=== PATIENT | female | born 1930 | race Caucasian/White ===

== ENCOUNTER 2017-05-19 15:57 | Observation (INO) | payer BC ==
--- NOTE | 2017-05-19 16:20 | Emergency Department Record ---
History of Present Illness - General Chief Complaint: Numbness Stated Complaint: RT SIDE FACE AND RT HAND DIGITS NUMBNESS Time Seen by Provider: 05/19/17 16:07 Source: Patient Mode of Arrival: Ambulatory Limitations: No limitations - History of Present Illness Initial Comments: The patient was at home today and noticed around 1pm that the R lower area of her face and R hand were mildly numb. She also had mild R facial drooping and slightly slurred speech. The patient denied any weakness, PARDO, visual changes, or balance issues. The numbness then did slowly resolve and presently has completely resolved. She was able to walk into the ER normally for her with no ataxia. Additionally she denied any CP, SOB, or nausea. The patient denies any hx of any strokes or TIA's. Onset/Timin -: Hour(s) Location: Right arm, Right face History of same: No Place: Home Severity: Mild Quality: Numb Improves With: None Worsens With: None Associated Symptoms: Denies other symptoms Treatments Prior to Arrival: None - Marisol Coma Scale Eye Response: (4) Open spontaneously Motor Response: (6) Obeys commands Verbal Response: (5) Oriented [place] Total: 15 - Symptoms of Stroke Onset of Symptoms Date: 05/19/17 Onset of Symptoms Time: 13:00 Symptom Onset Unknown: No Symptoms of stroke: Slurred Speech Baseline State End Date: 05/19/17 Baseline State End Time: 16:10 - Related Data Allergies/Adverse Reactions: Allergies Allergy/AdvReac Type Severity Reaction Status Date / Time Aldosterone Antagonists Allergy Unknown PT UNSURE Verified 12/25/16 09:35 OF REACTION Carbonic Anhydrase Inhibitors Allergy Unknown PT UNSURE Verified 12/25/16 09:35 OF REACTION hydrochlorothiazide Allergy Unknown PT UNSURE Verified 12/25/16 09:35 OF REACTION Sulfa (Sulfonamide Allergy Unknown PT UNSURE Verified 12/25/16 09:35 Antibiotics) OF REACTION Sulfonylureas Allergy Unknown PT UNSURE Verified 12/25/16 09:35 OF REACTION Thiazides Allergy Unknown PT UNSURE Verified 12/25/16 09:35 OF REACTION triamterene Allergy Unknown PT UNSURE Verified 12/25/16 09:35 OF REACTION Allergies: Allergy Unknown PT UNSURE Uncoded 12/25/16 09:35 OF REACTION Latex Allergy: Allergy Unknown PT UNSURE Uncoded 12/25/16 09:35 OF REACTION Travel Screening - Travel/Exposure Within Last 30 Days Have you traveled within the last 30 days?: No Review of Systems Constitutional: Denies: Chills, Fever Eyes: Denies: Eye discharge ENT: Denies: Congestion Respiratory: Denies: Cough, Dyspnea Cardiovascular: Denies: Chest pain Endocrine: Denies: Fatigue Gastrointestinal: Denies: Abdominal pain Genitourinary: Denies: Dysuria Musculoskeletal: Denies: Back pain Past Medical History - SOCIAL HISTORY Smoking Status: Never smoker Drug Use: None - RESPIRATORY Hx Respiratory Disorders: No - CARDIOVASCULAR Hx Cardio Disorders: Yes Hx Hypertension: Yes - NEURO Hx Neuro Disorders: Yes Comment:: parkinson's - GI Hx GI Disorders: No - Hx Genitourinary Disorders: No - ENDOCRINE Hx Endocrine Disorders: Yes Hx Diabetes: Yes Hx Thyroid Disease: Yes - MUSCULOSKELETAL Hx Musculoskeletal Disorders: No - PSYCH Hx Psych Problems: No - HEMATOLOGY/ONCOLOGY Hx Hematology/Oncology Disorders: Yes Hx Cancer: Yes (skin) Family Medical History Any Significant Family History?: No Physical Exam - General General Appearance: Alert, Oriented x3, Cooperative, No acute distress - Head Head exam: Atraumatic, Normocephalic, Normal inspection - Eye Eye exam: Normal appearance, PERRL, EOMI - ENT ENT exam: Normal exam, Mucous membranes moist, Normal external ear exam, Normal orophraynx, TM's normal bilaterally Throat exam: Normal inspection. negative: Tonsillar erythema, Tonsillar exudate - Neck Neck exam: Normal inspection, Full ROM, Other (Neg carotid bruits.). negative: Tenderness - Respiratory Respiratory exam: Normal lung sounds bilaterally. negative: Respiratory distress - Cardiovascular Cardiovascular Exam: Regular rate, Normal rhythm, Normal heart sounds - GI/Abdominal GI/Abdominal exam: Soft, Normal bowel sounds. negative: Tenderness - Extremities Extremities exam: Normal inspection, Full ROM, Normal capillary refill. negative: Tenderness - Neurological Neurological exam: Alert, Normal gait, Oriented X3. negative: Abnormal gait, Motor sensory deficit - Psychiatric Psychiatric exam: negative: Agitated, Anxious Course Vital Signs 05/19/17 16:07 Temperature 97.4 F L Pulse Rate 82 Respiratory 18 Rate Blood Pressure 197/91 Pulse Ox 96 - Reevaluation(s) Reevaluation #1: The patient is doing very well at this time. She denies any further numbness, weakness or facial drooping. I did discuss the case with the patient and family and did recommend hospital admission for a CVA workup and she did agree. I then did discuss the case with Dr. Newby and he did accept the admission. 05/19/17 17:07 Medical Decision Making - Data Complexity MDM Data: Labs Ordered and/or Reviewed, X-Ray Ordered and/or Reviewed - Lab Data Result diagrams: 05/19/17 16:22 05/19/17 16:22 - EKG Data -: EKG Interpreted by Me EKG: No Acute Changes, Normal EKG, Unchanged From Previous - Radiology Data Radiology results: Report reviewed (Head CT: No acute changes.) Disposition Disposition: Admit Clinical Impression: TIA (transient ischemic attack) Qualifiers: Transient cerebral ischemia type: other Qualified Code(s): G45.8 - Other transient cerebral ischemic attacks and related syndromes Disposition: Still a Patient at [facility] Decision to Admit: Admit from ER Decision to Admit Date: 05/19/17 Decision to Admit Time: 17:08 Accepting Physician: Keyonna Time Discussed w/Accepting Physician: 17:09 Condition: (2) Stable Time of Disposition: 17:09 Quality - Quality Measures Quality Measures: N/A - Blood Pressure Screening View Details: Yes Does Patient Have Any of the Following: Active Dx of HTN Blood Pressure Classification: Hypertensive Reading Systolic Measurement: 197 Diastolic Measurement: 91 Screening for High Blood Pressure: Patient Exclusion, Hx of HTN [[id number]]
[2017-05-19 16:30] LABS: BASO % 0.5 % (0-6); EOS % 2.2 % (0-6); GRAN % 71.4 % (47-80); HEMATOCRIT 38.1 % (35.0-47.0); HEMOGLOBIN 12.2 gm/dl (11.6-16.0); LYMPH % 14.6 % (16-45); MEAN CELL VOLUME 103.3 fl (81-97); MEAN PLATELET VOLUME 9.1 fl (7.4-10.4); MONO % 11.3 % (0-9); PLATELET COUNT 181 K/uL (130-400); RED BLOOD COUNT 3.69 M/uL (3.80-5.40); RED CELL DISTRIBUTION WIDTH 13.8 % (11.5-14.5); WHITE BLOOD COUNT W/O DIFF 6.3 K/uL (4.2-12.2)
[2017-05-19 16:39] LABS: BLOOD UREA NITROGEN 23 mg/dL (8-23)
[2017-05-19 16:40] LABS: CREATININE 1.1 mg/dL (0.5-0.9); EST GLOMERULAR FILTRATION RATE 50 mL/min
[2017-05-19 16:41] LABS: INR 0.99; PARTIAL THROMBOPLASTIN TIME 23.8 SECONDS (24.5-39.1); PROTHROMBIN TIME (PATIENT) 10.7 SECONDS (9.5-12.1)
[2017-05-19 16:42] LABS: GLUCOSE,RANDOM 112 mg/dL (74-109)
[2017-05-19 16:45] LABS: CREATINE PHOSPHOKINASE 111 U/L (26-192)
[2017-05-19 16:47] LABS: CKMB 2.7 ng/mL (<3.77)
[2017-05-19] MEDS ORDERED: ASPIRIN 325 MG TABLET PO ONE (17:04)
[2017-05-19] MEDS ORDERED: ACETAMINOPHEN 500 MG TABLET PO PRN (17:30)
[2017-05-19] MEDS ORDERED: ENALAPRIL 5 MG TABLET PO SCH (18:00)
[2017-05-19 20:30] LABS: CKMB 2.7 ng/mL (<3.77)
[2017-05-19] MEDS ORDERED: SIMVASTATIN 20 MG TABLET PO SCH (22:00)
[2017-05-19] MEDS ORDERED: CARBIDOPA/LEVODOPA 25MG/100MG TABLET PO SCH (22:00)
[2017-05-19] MEDS ORDERED: CLONIDINE HCL 0.1 MG TABLET PO ONE (23:39)
[2017-05-20 05:31] LABS: CKMB 2.7 ng/mL (<3.77)
[2017-05-20] MEDS: CARBIDOPA/LEVODOPA 25MG/100MG TABLET PO SCH ×2 (06:05→11:00)
[2017-05-20] MEDS ORDERED: LEVOTHYROXINE SODIUM 75 MCG TABLET PO SCH (07:00)
--- NOTE | 2017-05-20 07:28 | CT SCAN REPORT ---
EXAM: CT OF THE BRAIN HISTORY: FACIAL NUMBNESS. TECHNIQUE: Sequential axial images were obtained from the foramen magnum to the vertex without contrast administration. FINDINGS: The brain volume is normal. No large territorial infarct, hemorrhage , mass effect, or midline shift. There is a calcification in the posterior right high parietal convexity. This is likely related to previous injury. No depressed skull fracture. The orbits, paranasal sinuses, and mastoid air cells are normal. IMPRESSION: CALCIFICATION IN THE POSTERIOR RIGHT HIGH PARIETAL CONVEXITY. PERIVENTRICULAR SMALL VESSEL ISCHEMIA. NO ACUTE INTRACRANIAL ABNORMALITY IS APPRECIATED. JOB NUMBER: [id number] MTDD
[2017-05-20] MEDS ORDERED: METFORMIN ER HCL 500 MG TAB.ER.24H PO SCH (08:00)
[2017-05-20] MEDS ORDERED: CLONIDINE TTS-0.1MG PATCH TD SCH (08:30)
[2017-05-20] MEDS ORDERED: ASPIRIN 325 MG TAB ENTERIC-COATED PO SCH (10:00)
[2017-05-20] MEDS ORDERED: POLYETHYLENE GLY 17 GM PACKET PO SCH (10:00)
[2017-05-20] MEDS ORDERED: PAROXETINE HCL 10 MG TABLET PO SCH (10:00)
[2017-05-20] MEDS: ENALAPRIL 5 MG TABLET PO SCH ×2 (10:56→15:09)
--- NOTE | 2017-05-20 11:30 | History and Physical Report ---
DATE OF ADMISSION: 05/20/2017 at 8:26 a.m., observation patient. CHIEF COMPLAINT: Numbness in the right arm, right face, and possibly some facial droop. HISTORY OF PRESENT ILLNESS: This 86-year-old female noticed about 1 o'clock yesterday afternoon that she had some numbness in her right arm, right face, maybe a little facial droop. She came into the emergency department about 4:30, evaluated by Dr. Guerrero who felt she had a TIA. The symptoms had resolved by the time she got to the emergency department. She had a little bit of numbness in the fingers of her right hand. She also has a past history of Parkinson disease. PAST MEDICAL HISTORY: Parkinson's disease, diabetes mellitus, hypertension, hypercholesterolemia, hypothyroidism. PAST SURGICAL HISTORY: Right hip replacement , open heart and valve replacement 2007, and back surgery. MEDICATIONS: 1. Metformin 750 mg daily. 2. Lovastatin 80 mg daily. 3. Claritin 10 mg daily. 4. Levothyroxine 75 mcg daily. 5. Motrin 600 mg as needed. 6. Enalapril 20 mg daily. 7. Sinemet 25/100 one t.i.d. 8. Aspirin 81 mg daily. 9. Paxil 10 mg daily. 10. Multivitamin one a day. ALLERGIES: ALDOSTERONE, CARBONIC ANHYDRASE INHIBITORS, HYDROCHLOROTHIAZIDE, SULFA, SULFONYLUREAS, DYAZIDE, TRIAMTERENE, POSSIBLY LATEX, unsure of the reaction. FAMILY HISTORY: Unremarkable. SOCIAL HISTORY: Never smoked. No alcohol, no drug use. REVIEW OF SYSTEMS: HEENT: No upper respiratory infection symptoms, cough, cold, or congestion. Cardiovascular: No chest pain, palpitations, or arrhythmia. Respiratory: No cough, cold, or congestion. Gastrointestinal: No nausea, vomiting, diarrhea, black stools, or bloody stools. Genitourinary: No dysuria, hematuria, frequency, or burning on urination. Musculoskeletal: She does have some right shoulder pain which is from a fall 2 or 3 weeks ago but it is getting better gradually. Neurological: See chief complaint. She had numbness in the right face and right arm with some right facial droop which resolved within 3 hours. Gynecological: No lumps in her breasts or vaginal bleeding. Endocrine: She has diabetes mellitus type 2 and hypothyroidism. Integument: No rash, ulcers, change in moles, or yellow skin. PHYSICAL EXAMINATION: VITALS: Height 5 feet 2 inches, weight 146 pounds. Temperature 97.4, pulse 69, blood pressure 174/81, respiratory rate 18, pulse ox 96% on room air. HEENT: Pupils are equal, round, and reactive to light and accommodation. Extraocular muscles are intact. Throat is clear. Nose is clear. Tympanic membranes are benito. NECK: Supple. No jugular venous distention. No hepatojugular reflux. No carotid bruits. CARDIOVASCULAR: Regular rate and rhythm without murmurs, clicks, rubs, or gallops. Normal sinus rhythm. RESPIRATORY: Clear to auscultation and percussion. ABDOMEN: Soft, nontender. No hepatosplenomegaly, no masses, no tenderness. Bowel sounds are active. No bruits. EXTREMITIES: No pitting edema. No cyanosis, no clubbing. Full range of motion. Peripheral pulses are good. She does have some shuffling gait and some numbness in her feet. She feels it is from her Parkinson's. BREASTS: Exam deferred. GYNECOLOGICAL: Exam deferred. RECTAL: Exam deferred. NEUROLOGIC: Cranial nerves II-XII intact. No gross defects. Sensation normal, strength normal. Deep tendon reflexes equal bilaterally with Babinski negative. MENTAL STATUS: Alert and oriented x3. IMPRESSION: 1. Transient ischemic attack. 2. Parkinson disease. 3. Hypertension. 4. Status post hypercholesterolemia. 5. Status post diabetes mellitus type 2. 6. Status post hypothyroidism. PLAN: Carotid Doppler. Echocardiogram. Will start clonidine TTS 0.1 patch weekly. Increase the aspirin to 325 a day. She does have a neurologist who takes care of her Parkinson's. We will also have her follow up as an outpatient with the neurologist. VADIM
--- NOTE | 2017-05-20 12:38 | Discharge Note ---
VTE H&P Assessment - Risk for VTE Risk for VTE: No Risk Level: Very Low Risk Assessment Date: 05/20/17 Risk Assessment Time: 12:33 VTE Orders Placed or Will Be Placed: No VTE Reason for No Prophylaxis: Not Indicated Discharge Medications - Discharge Medications Prescriptions: Aspirin [Aspirin EC] 325 mg PO DAILY #100 tablet. Clonidine Tts-1 [Catapres] 1 each TD Q7D #4 patch Home Medications: Ambulatory Orders Carbidopa/Levodopa [Sinemet 25-100 mg Tablet] 1 each PO TID 12/25/16 [Last Taken 12/25/16] Enalapril Maleate 20 mg PO DAILY 12/25/16 [Last Taken 12/25/16] Ibuprofen [Motrin 600Mg] 600 mg PO ASDIR 12/25/16 [Last Taken 12/25/16] Levothyroxine Sodium 75 mcg PO DAILY 12/25/16 [Last Taken 12/25/16] Loratadine [Claritin] 10 mg PO DAILY 12/25/16 [Last Taken 12/25/16] Lovastatin 80 mg PO DAILY 12/25/16 [Last Taken 12/25/16] Metformin HCl [Metformin HCl ER] 750 mg PO DAILY 12/25/16 [Last Taken 12/25/16] Multivit-Min/FA/Lycopen/Lutein [Centrum Silver Tablet] 1 each PO DAILY 12/25/16 [Last Taken 12/25/16] Paroxetine HCl [Paxil] 10 mg PO DAILY 12/25/16 [Last Taken 12/25/16] Aspirin [Aspirin EC] 325 mg PO DAILY #100 tablet. 05/20/17 [Last Taken Unknown ] Clonidine Tts-1 [Catapres] 1 each TD Q7D #4 patch 05/20/17 [Last Taken Unknown] Discharge Note - Date Date of Discharge Note: 05/20/17 Disposition: Home, Self-Care Condition: (2) Stable Additional Instructions: follow up with Dr. Newby on friday increase aspirin to 325 mg per day Forms: Patient Portal Access
--- NOTE | 2017-05-20 13:11 | RADIOLOGY REPORT ---
EXAM: RIGHT SHOULDER COMPLETE HISTORY: RIGHT SHOULDER PAIN WITH ABDUCTION THREE WEEKS POST FALL. TECHNIQUE: Internal and external humerus rotation AP views of the right shoulder were obtained as well as a scapular Y-view. Comparison: None. Encounter: Initial. FINDINGS: There is diffuse osteopenia. No acute fracture, dislocation, or destructive bone lesion is seen. There are mild degenerative changes of the acromioclavicular and glenohumeral joints. No periarticular erosion nor suspicious soft tissue abnormality. Post median sternotomy changes. Cardiomegaly. There is a large hiatal hernia suggested with an air fluid level within. IMPRESSION: 1. DIFFUSE OSTEOPENIA. NO ACUTE FRACTURE NOR DISLOCATION. ON THE EXTERNAL HUMERUS ROTATION AP VIEW THE SPACE BETWEEN THE ACROMION AND THE SUPERIOR MARGIN OF THE HUMERAL HEAD APPEARS SOMEWHAT REDUCED AND ROTATOR CUFF TEAR CANNOT BE EXCLUDED. 2. DEGENERATIVE CHANGES. 3. LARGE HIATAL HERNIA. JOB NUMBER: [id number] MTDD
--- NOTE | 2017-05-20 13:23 | US CAROTID DOPPLER REPORT ---
EXAM: BILATERAL CAROTID DOPPLER ULTRASOUND HISTORY: TRANSIENT DIFFICULTY IN SPEAKING AND RIGHT SIDED FACIAL DROOP ONE DAY AGO. DIFFICULTY WITH BALANCE. TECHNIQUE: Duncan scale, color Doppler and duplex Doppler evaluation of the cervical arteries was performed. Comparison: CT of the head without contrast dated 05/19/17. No prior Doppler evaluation available. FINDINGS: There is moderate relatively smoothly marginated echogenic plaque demonstrated in each carotid bulb without duncan scale and color Doppler evidence of high grade stenosis. There is also smooth echogenic plaque in the mid right common carotid artery. 3 Vessel Right Peak Systolic/ End Diastolic Velocities Left Peak Systolic/ End Diastolic Velocities Proximal Common Carotid Artery 53 cm/s/9 cm/s 58 cm/s/11 cm/s Mid Common Carotid Artery 98 cm/s/16 cm/s 41 cm/s/11 cm/s Distal Common Carotid Artery 110 cm/s/6 cm/s 47 cm/s/6 cm/s Proximal Internal Carotid Artery 70 cm/s/11 cm/s 65 cm/s/8 cm/s Mid Internal Carotid Artery 79 cm/s/13 cm/s 67 cm/s/15 cm/s Distal Internal Carotid Artery 65 cm/s/16 cm/s 73 cm/s/15 cm/s Carotid Bulb 89 cm/s/11 cm/s 87 cm/s/16 cm/s Proximal External Carotid Artery 55 cm/s/0 cm/s 81 cm/s/31 cm/s d d d Right Flow Left Flow Vertebral Artery Antegrade Antegrade The ICA/CCA ratio on the right is 0.8 and that on the left is 1.8. A Duplex Doppler waveform was difficult to obtain at the level of the carotid bulb. The waveform obtained demonstrates spectral broadening. IMPRESSION: 1. MODERATE RELATIVELY SMOOTH MARGINATED ECHOGENIC PLAQUE INVOLVING EACH CAROTID BULB WITH THAT ON THE LEFT APPEARING TO EXTEND SLIGHTLY INTO THE INTERNAL CAROTID ARTERY. THERE IS ALSO MODERATE SMOOTH ECHOGENIC PLAQUE IN THE MID RIGHT COMMON CAROTID ARTERY. 2. NO DEFINITE VELOCITY EVIDENCE OF 70% OR GREATER STENOSIS WITHIN THE CERVICAL CAROTID ARTERIES THOUGH THERE IS INCREASE IN PEAK SYSTOLIC VELOCITY OF MORE THAN DOUBLE BETWEEN THE PROXIMAL RIGHT CCA AND THE DISTAL LEFT CCA SUGGESTING MODERATE STENOSIS (50-69%). 3. ADDITIONALLY, THE DOPPLER WAVEFORM WITHIN THE LEFT CAROTID BULB WAS DIFFICULT TO OBTAIN THOUGH NOT GROSSLY ELEVATED. FURTHER EVALUATION WITH CTA EXAMINATION MAY BE OF BENEFIT. JOB NUMBER: [id number] [facility]
--- NOTE | 2017-05-20 14:20 | Discharge Summary ---
DATE: 05/20/2017 DISCHARGE DIAGNOSES: 1. Transient ischemic attack. 2. Parkinson disease. 3. Hypertension. 4. Right shoulder strain and contusion. 5. Status post diabetes mellitus. 6. Status post hypercholesterolemia. 7. Status post hypothyroidism. ATTENDING PHYSICIAN: Gonzalo Newby DO REASON FOR HOSPITALIZATION: Numbness of the right arm, right face, and possibly some facial droop. This 86-year-old female noticed at about 1 o'clock yesterday afternoon she had some numbness in the right arm, right face, maybe a little facial droop. By the time she came to the emergency department at 4:30 it had all resolved. She saw Dr. Guerrero who did a CT scan of the head which was essentially negative. Laboratory and EKG showing normal sinus rhythm, and she was admitted to the hospital for observation for further development of symptoms. She also has a past history of Parkinson disease which may complicate what she is feeling. SIGNIFICANT FINDINGS: Carotid Doppler showing the right carotid system, carotid artery showing 50% to 69% stenosed but nothing high grade. The left carotid system was less than 50% stenosis. There was some plaquing seen on both sides. The CT scan showed calcification of the posterior right parietal complexity. Periventricular small vessel ischemia. No acute intracranial abnormalities were appreciated. EKG showing normal sinus rhythm. No acute changes. Echocardiogram was done. The preliminary result was negative but the final results will be coming in tomorrow. We will go over this as an outpatient in my office on Friday. WBC 6300, hemoglobin 12.2, potassium 4.6, BUN 23, creatinine 1.1. Two sets of cardiac enzymes were negative. THERAPY PROVIDED: The patient was observed. Neuro checks were obtained. She had no symptoms develop while she was in the hospital. Symptoms had resolved prior to coming to the emergency department. HOSPITAL COURSE: Improved. She is ambulating around the room with a walker and eating appropriately. CONDITION ON DISCHARGE: Much improved. DISCHARGE INSTRUCTIONS: 1. Follow up with Dr. Newby on 05/26/2017. 2. Increase aspirin from 81 mg to 325 a day. We added on a clonidine patch 0.1 mg because her blood pressure was running high. We will follow this as an outpatient. Continue her home medications of metformin 750 mg daily, lovastatin 80 mg daily, Claritin 10 mg daily, levothyroxine 75 mcg daily, Motrin p.r.n., enalapril 20 mg b.i.d., Sinemet 25/100 one t.i.d., Paxil 10 mg daily, multivitamin one a day. A new prescription for clonidine 0.1 mg per week was given to the patient. Clonidine TTS-1. 3. Return to the emergency department if any more symptoms develop. MTDD
== END 2017-05-20 15:15 | disposition home or self-care (01) ==
LOC: ER 15:57 → MEDSURG 17:28
PROVIDERS: ADMIT Emergency Medicine; ATTEND Emergency Medicine
DX: G45.8 Other transient cerebral ischemic attacks and related syndromes (principal); G20 Parkinson's disease; I10 Essential (primary) hypertension; E11.9 Type 2 diabetes mellitus without complications; Z79.84 Long term (current) use of oral hypoglycemic drugs; Z95.2 Presence of prosthetic heart valve; Z79.01 Long term (current) use of anticoagulants; E78.00 Pure hypercholesterolemia, unspecified; E03.9 Hypothyroidism, unspecified
CPT/HCPCS: 93041; 99285 ×2; 82550; 85025; 85730; 85610; 82553 ×2; 80048; 36416; 82948; 84484 ×2; 73030; 93880; 70450; 93005 ×2; 93010; G0378 ×2

== ENCOUNTER 2017-11-15 20:04 | Emergency (ER) | payer BC ==
[2017-11-15] MEDS ORDERED: ACETAMINOPHEN 325 MG TAB PO ONE (20:20)
--- NOTE | 2017-11-15 20:26 | Emergency Department Record ---
History of Present Illness - General Chief Complaint: Fall Injury Stated Complaint: FELL Time Seen by Provider: 11/15/17 20:17 Source: Patient Mode of Arrival: Ambulatory Limitations: No limitations - History of Present Illness Initial Comments: The patient is here due to falling at home about an hour ago. She was walking in the kitchen and believes she lost her balance and landed on the floor. She had no LOC or dizziness prior but states she has Parkinson's Dz and bad balance chronically. When she fell she did mildly hit her R cheek on an object and also her R forearm but the main pain is over the low back. She is able to walk with no new difficulty. There is no hx of hitting her head or any head or neck pain. MD Complaint: Fall Onset/Timin -: Hour(s) Fall From: From height (distance) When Fall Occurred: 1 hour [employer]FF[employer] Fall Witnessed: Yes, by family Place Fall Occurred: Home Loss of Consciousness: None Prolonged Down Time?: No Associated Symptoms: Denies - Marisol Coma Scale Eye Response: (4) Open spontaneously Motor Response: (6) Obeys commands Verbal Response: (5) Oriented Marisol Total: 15 - Related Data Home Medications Medication Instructions Recorded Confirmed Last Taken Ascorbic Acid [Vitamin C] 1,000 mg PO DAILY 11/15/17 11/15/17 Unknown Cholecalciferol (Vitamin D3) 1,000 unit PO DAILY 11/15/17 11/15/17 Unknown [Vitamin D3] Omeprazole 20 mg PO DAILY 11/15/17 11/15/17 Unknown Oxybutynin Chloride [Ditropan Xl] 2.5 mg PO BID 11/15/17 11/15/17 Unknown Trazodone HCl 25 mg PO QPM 11/15/17 11/15/17 Unknown Previous Rx's Medication Instructions Recorded Aspirin [Aspirin EC] 325 mg PO DAILY #100 tablet. 05/20/17 Allergies Allergy/AdvReac Type Severity Reaction Status Date / Time Aldosterone Antagonists Allergy Unknown PT UNSURE Verified 12/25/16 09:35 OF REACTION Carbonic Anhydrase Inhibitors Allergy Unknown PT UNSURE Verified 12/25/16 09:35 OF REACTION hydrochlorothiazide Allergy Unknown PT UNSURE Verified 12/25/16 09:35 OF REACTION Sulfa (Sulfonamide Allergy Unknown PT UNSURE Verified 12/25/16 09:35 Antibiotics) OF REACTION Sulfonylureas Allergy Unknown PT UNSURE Verified 12/25/16 09:35 OF REACTION Thiazides Allergy Unknown PT UNSURE Verified 12/25/16 09:35 OF REACTION triamterene Allergy Unknown PT UNSURE Verified 12/25/16 09:35 OF REACTION shellfish derived Allergy ANAPHYLAXIS Verified 11/15/17 20:24 Allergies: Allergy Unknown PT UNSURE Uncoded 12/25/16 09:35 OF REACTION Latex Allergy: Allergy Unknown PT UNSURE Uncoded 12/25/16 09:35 OF REACTION seafood Allergy ANAPHYLAXIS Uncoded 11/15/17 20:24 Travel Screening - Travel/Exposure Within Last 30 Days Have you traveled within the last 30 days?: No - Travel/Exposure Within Last Year Have you traveled outside the [place] in the last year?: No - Additonal Travel Details Have you been exposed to anyone with a communicable illness?: No - Travel Symptoms Symptom Screening: None Review of Systems Constitutional: Denies: Chills, Fever Eyes: Denies: Eye discharge ENT: Denies: Congestion Respiratory: Denies: Cough, Dyspnea Past Medical History - SOCIAL HISTORY Smoking Status: Never smoker Alcohol Use: None Drug Use: None - RESPIRATORY Hx Respiratory Disorders: No - CARDIOVASCULAR Hx Cardio Disorders: Yes Hx Hypertension: Yes - NEURO Hx Neuro Disorders: Yes Comment:: parkinson's - GI Hx GI Disorders: No - Hx Genitourinary Disorders: No - ENDOCRINE Hx Endocrine Disorders: Yes Hx Diabetes: Yes Hx Thyroid Disease: Yes - MUSCULOSKELETAL Hx Musculoskeletal Disorders: No - PSYCH Hx Psych Problems: No - HEMATOLOGY/ONCOLOGY Hx Hematology/Oncology Disorders: Yes Hx Cancer: Yes (skin) Family Medical History Any Significant Family History?: No Hx Anxiety: Mother Hx Cancer: Children Hx Heart Disease: Brother/Sister Hx Resp Disorders: Father *Resp Comment: Emphysema; smoker Hx Stroke: Father Physical Exam - General General Appearance: Alert, Oriented x3, Cooperative, No acute distress - Head Head exam: Atraumatic, Normocephalic, Normal inspection - Eye Eye exam: Normal appearance, PERRL - ENT ENT exam: Normal exam (There is no facial bone tenderness.) - Neck Neck exam: Normal inspection, Full ROM. negative: Tenderness (There is no Cspine tenderness.) - Respiratory Respiratory exam: Normal lung sounds bilaterally. negative: Respiratory distress - Cardiovascular Cardiovascular Exam: Regular rate, Normal rhythm, Normal heart sounds - GI/Abdominal GI/Abdominal exam: Soft, Normal bowel sounds. negative: Tenderness - Extremities Extremities exam: Tenderness (There is very mild Proximal dorsal R forearm tenderness but no significant swelling and NO pain with ROM of the elbow.). negative: Normal inspection - Back Back exam: Reports: Normal inspection, Vertebral tenderness (There is mild lower lumbar tenderness.) - Neurological Neurological exam: Alert. negative: Motor sensory deficit Course Vital Signs 11/15/17 20:06 Temperature 97.7 F Pulse Rate 86 Respiratory 20 Rate Blood Pressure 208/148 Pulse Ox 94 L - Reevaluation(s) Reevaluation #1: The patient is doing very well at this time. I did explain the test results to her and the possible mild L1 comp fx. She does have an appointment with her PCP in 3 days. 11/15/17 21:35 Reevaluation #2: The patient's BP is elevated but improved and she did not take her BP medicines today. She was encouraged to do so when she got home. 11/15/17 21:40 Medical Decision Making - Data Complexity MDM Data: X-Ray Ordered and/or Reviewed - Radiology Data Radiology results: Report reviewed (Lumbar spine: Extensive DJD, possible mild L1 comp. fx.) Disposition Disposition: Discharge Clinical Impression: Contusion, back Qualifiers: Encounter type: initial encounter Laterality: unspecified laterality Qualified Code(s): S20.229A - Contusion of unspecified back wall of thorax, initial encounter Disposition: Home, Self-Care Condition: (2) Stable Instructions: Contusion in Adults (ED) Additional Instructions: Please take Tylenol for pain and see your family doctor next week as planned. Return to the ER for any worsening symptoms. Forms: Patient Portal Access Time of Disposition: 21:36 Quality - Quality Measures Quality Measures: N/A - Blood Pressure Screening View Details: Yes Does Patient Have Any of the Following: Active Dx of HTN Blood Pressure Classification: Hypertensive Reading Systolic Measurement: 208 Diastolic Measurement: 148 Screening for High Blood Pressure: Patient Exclusion, Hx of HTN [[id number]]
--- NOTE | 2017-11-17 08:58 | RADIOLOGY REPORT ---
EXAM: LUMBAR SPINE HISTORY: BACK PAIN. TECHNIQUE: Frontal and lateral views of the lumbar spine were obtained. Comparison: None. FINDINGS: Osteopenia. Five non-rib bearing lumbar type vertebral bodies. Pars defects at the L4-L5 level with Grade 2 spondylolisthesis. Minor superior end plate compression deformity of L1. This is age indeterminate. Height and alignment is otherwise preserved. Extensive vascular calcifications. Post surgical change right hip. Advanced facet arthropathy L3-L4, L4-L5, and L5-S1. IMPRESSION: 1. MILD SUPERIOR END PLATE COMPRESSION DEFORMITY OF L1. THIS IS AGE INDETERMINATE. 2. PARS DEFECTS AT THE L4-L5 LEVEL WITH GRADE 2 SPONDYLOLISTHESIS. MULTILEVEL DEGENERATIVE CHANGE. JOB NUMBER: [id number] [facility]
== END 2017-11-15 21:56 | disposition home or self-care (01) ==
LOC: ER 20:04
DX: S20.229A Contusion of unspecified back wall of thorax, initial encounter (principal); S00.81XA Abrasion of other part of head, initial encounter; M54.5 Low back pain; M79.631 Pain in right forearm; G20 Parkinson's disease; E11.9 Type 2 diabetes mellitus without complications; I10 Essential (primary) hypertension; W01.10XA Fall on same level from slipping, tripping and stumbling with subsequent striking against unspecified object, initial encounter; Y92.000 Kitchen of unspecified non-institutional (private) residence as the place of occurrence of the external cause
CPT/HCPCS: 72100; 99283; 99284

== ENCOUNTER 2017-11-17 16:33 | Emergency (ER) | payer BC ==
--- NOTE | 2017-11-17 17:03 | Emergency Department Record ---
History of Present Illness - General Chief complaint: Pain Stated complaint: PAIN LT HIP/PELVIS AREA Time Seen by Provider: 11/17/17 16:35 Source: Patient Mode of Arrival: Ambulatory Limitations: No limitations - History of Present Illness Initial comments: 87 yo female presents with left groin, pelvic and hip pain. She fell on Friday after loosing her balance. No headache or dizziness. She states she has persistent left groin/pelvic pain since then. Her elbow and low back are mildly painful but tolerable. The pain is better if standing and worse if laying. She has a recheck with Dr Newby tomorrow. No chest pain, shortness of breath or other new symptoms. MD Complaint: Joint pain Onset/Timin -: Days(s) Location: Left, Thigh -: Yes Arthralgia Radiation: Proximal Severity scale (1-10): 7 Quality: Aching Consistency: Constant Improves with: Rest Worsens with: Walking, Weight bearing Associated Symptoms: Denies other symptoms - Related Data Previous Rx's Medication Instructions Recorded Aspirin [Aspirin EC] 325 mg PO DAILY #100 tablet. 05/20/17 Hydrocodone/APAP 5/325Mg [[place] 1 each PO Q8H #9 tab 11/17/17 5Mg/325Mg] Allergies Allergy/AdvReac Type Severity Reaction Status Date / Time Aldosterone Antagonists Allergy Unknown PT UNSURE Verified 11/17/17 16:47 OF REACTION Carbonic Anhydrase Inhibitors Allergy Unknown PT UNSURE Verified 11/17/17 16:47 OF REACTION hydrochlorothiazide Allergy Unknown PT UNSURE Verified 11/17/17 16:47 OF REACTION Sulfa (Sulfonamide Allergy Unknown PT UNSURE Verified 11/17/17 16:47 Antibiotics) OF REACTION Sulfonylureas Allergy Unknown PT UNSURE Verified 11/17/17 16:47 OF REACTION Thiazides Allergy Unknown PT UNSURE Verified 11/17/17 16:47 OF REACTION triamterene Allergy Unknown PT UNSURE Verified 11/17/17 16:47 OF REACTION shellfish derived Allergy ANAPHYLAXIS Verified 11/17/17 16:47 Allergies: Allergy Unknown PT UNSURE Uncoded 11/17/17 16:47 OF REACTION Latex Allergy: Allergy Unknown PT UNSURE Uncoded 11/17/17 16:47 OF REACTION seafood Allergy ANAPHYLAXIS Uncoded 11/17/17 16:47 Travel Screening - Travel/Exposure Within Last 30 Days Have you traveled within the last 30 days?: No - Travel/Exposure Within Last Year Have you traveled outside the [place] in the last year?: No - Additonal Travel Details Have you been exposed to anyone with a communicable illness?: No - Travel Symptoms Symptom Screening: None Review of Systems Constitutional: Denies: Chills, Fever, Malaise, Weakness Eyes: Denies: Eye discharge ENT: Denies: Congestion, Throat pain Respiratory: Denies: Cough, Dyspnea, Wheezes Cardiovascular: Denies: Chest pain, Syncope Endocrine: Denies: Fatigue Gastrointestinal: Denies: Abdominal pain, Diarrhea, Nausea, Vomiting Genitourinary: Denies: Dysuria, Urgency Musculoskeletal: Reports: As per HPI, Arthralgia, Back pain, Myalgia. Denies: Joint swelling, Neck pain Skin: Denies: Bruising, Change in color, Rash Neurological: Denies: Headache, Numbness, Weakness Psychiatric: Denies: Anxiety Hematological/Lymphatic: Denies: Blood Clots, Easy bleeding, Easy bruising, Swollen glands Past Medical History - SOCIAL HISTORY Smoking Status: Never smoker Alcohol Use: None Drug Use: None - RESPIRATORY Hx Respiratory Disorders: No - CARDIOVASCULAR Hx Cardio Disorders: Yes Hx Hypertension: Yes - NEURO Hx Neuro Disorders: Yes Comment:: parkinson's - GI Hx GI Disorders: No - Hx Genitourinary Disorders: No - ENDOCRINE Hx Endocrine Disorders: Yes Hx Diabetes: Yes Hx Thyroid Disease: Yes - MUSCULOSKELETAL Hx Musculoskeletal Disorders: No - PSYCH Hx Psych Problems: No - HEMATOLOGY/ONCOLOGY Hx Hematology/Oncology Disorders: Yes Hx Cancer: Yes (skin) Family Medical History Any Significant Family History?: Yes Hx Anxiety: Mother Hx Cancer: Children Hx Heart Disease: Brother/Sister Hx Resp Disorders: Father *Resp Comment: Emphysema; smoker Hx Stroke: Father Physical Exam - General General Appearance: Alert, Oriented x3, Cooperative, No acute distress Limitations: No limitations - Head Head exam: Atraumatic, Normocephalic, Normal inspection - Eye Eye exam: Normal appearance, PERRL. negative: Conjunctival injection, Scleral icterus - ENT ENT exam: Normal exam, Mucous membranes moist Ear exam: Normal external inspection Nasal Exam: Normal inspection Mouth exam: Normal external inspection - Neck Neck exam: Normal inspection, Full ROM. negative: Tenderness - Respiratory Respiratory exam: Normal lung sounds bilaterally. negative: Respiratory distress - Cardiovascular Cardiovascular Exam: Regular rate, Normal rhythm, Normal heart sounds - GI/Abdominal GI/Abdominal exam: Soft. negative: Tenderness - Rectal Rectal exam: Deferred - exam: Deferred - Extremities Extremities exam: Full ROM, Normal capillary refill. negative: Calf tenderness , Joint swelling, Pedal edema - Back Back exam: Reports: Normal inspection, Full ROM, Paraspinal tenderness, Tenderness, Vertebral tenderness. Denies: CVA tenderness (R), CVA tenderness (L ), Muscle spasm, Rash noted - Neurological Neurological exam: Alert, Normal gait, Oriented X3 - Psychiatric Psychiatric exam: Normal affect, Normal mood. negative: Agitated, Anxious - Skin Skin exam: Dry, Intact, Normal color, Warm Course Vital Signs 11/17/17 16:42 Temperature 98.0 F Pulse Rate 72 Respiratory 20 Rate Blood Pressure 141/76 Pulse Ox 97 - Reevaluation(s) Reevaluation #1: The ED visit reviewed from 11/15/17. XR's reviewed. Lumbar. 11/17/17 17:03 11/17/17 18:[address] scan of the pelvis was negative for acute fracture or injury. I SW Dr Newby He is seeing the patient 10 am tomorrow Disposition Disposition: Discharge Clinical Impression: Hip pain, left Disposition: Home, Self-Care Condition: (1) Good Instructions: Pain Management in the Elderly (ED) Additional Instructions: See Dr Newby tomorrow as scheduled Rest avoiding too much walking or activity. Take a stool softer while on the pain medication Always walk with assistance Prescriptions: Hydrocodone/APAP 5/325Mg [[place] 5Mg/325Mg] 1 each PO Q8H #9 tab Forms: Patient Portal Access Time of Disposition: 18:41 Quality - Quality Measures Quality Measures: N/A - Blood Pressure Screening Does Patient Have Any of the Following: Active Dx of HTN Blood Pressure Classification: Hypertensive Reading Systolic Measurement: 141 Diastolic Measurement: 76 Screening for High Blood Pressure: Patient Exclusion, Hx of HTN [G9744]
[2017-11-17] MEDS ORDERED: HYDROCODONE/APAP 5/325MG TABLET PO ONE (17:53)
--- NOTE | 2017-11-19 10:05 | CT SCAN REPORT ---
EXAM: CT OF THE PELVIS WITHOUT CONTRAST HISTORY: PAIN, FALL. TECHNIQUE: Sequential axial images were obtained through the pelvis without intravenous contrast administration. Sagittal and coronal three dimensional MIP images were performed on an independent workstation. FINDINGS: There is a Grade 1 anterolisthesis of L4 in respect to L5. Right hip prosthesis is in place. No evidence of fracture or dislocation involving the hip joints. The ilium and ischium are intact. The sacrum is intact. IMPRESSION: 1. NEGATIVE CT EXAMINATION OF THE PELVIS. NO ACUTE PROCESS IS APPRECIATED. 2. GRADE 1 ANTEROLISTHESIS OF L4 IN RESPECT TO L5. JOB [facility]BER: [id number] [facility]
== END 2017-11-17 18:51 | disposition home or self-care (01) ==
LOC: ER 16:33
DX: G89.11 Acute pain due to trauma (principal); R10.2 Pelvic and perineal pain; M54.5 Low back pain; M79.652 Pain in left thigh; W01.0XXA Fall on same level from slipping, tripping and stumbling without subsequent striking against object, initial encounter; G20 Parkinson's disease
CPT/HCPCS: 72192; 99283

== ENCOUNTER 2017-12-22 07:39 | Day surgery (SDC) | payer BC ==
[~2017-12-22 07:39] MED LIST: ACETAMINOPHEN 1,000 MG/100 ML BTL IV ONE; CEFAZOLIN 1 Gram 1 GM/50 ML BAG IVPB ONE
[2017-12-22] MEDS ORDERED: PROPOFOL 10 MG/ML VIAL IV ONE (07:40)
[2017-12-22] MEDS ORDERED: FENTANYL PF 100MCG/2ML VIAL IV ONE (07:40)
[2017-12-22] MEDS ORDERED: ISOSULFAN BLUE 50 MG/5 ML VIAL SQ ONE (07:40)
[2017-12-22] MEDS ORDERED: MIDAZOLAM HCL 2MG/2ML VIAL IV ONE (07:40)
[2017-12-22] MEDS ORDERED: LIDOCAINE 1% MDV (10MG/ML) 20ML VIAL SQ ONE (07:40)
[2017-12-22] MEDS ORDERED: LABETALOL HCL 5MG/ML, 20ML VIAL IV ONE (07:40)
[2017-12-22] MEDS ORDERED: BUPIVACAINE 0.25% W/EPI MPF 30ML VIAL IVP ONE (07:40)
[2017-12-22] MEDS ORDERED: SEVOFLURANE 250 ML INH ONE (07:40)
[2017-12-22] MEDS ORDERED: ONDANSETRON HCL IV 4 MG/2 ML VIAL IVP ONE (07:40)
[2017-12-22] MEDS ORDERED: METOPROLOL TART 5 MG/5 ML VIAL IV ONE (07:40)
[2017-12-22 08:19] LABS: BASO % 0.5 % (0-6); EOS % 5.9 % (0-6); GRAN % 63.7 % (47-80); HEMATOCRIT 37.1 % (35.0-47.0); HEMOGLOBIN 11.8 gm/dl (11.6-16.0); LYMPH % 16.4 % (16-45); MEAN CELL VOLUME 102.2 fl (81-97); MEAN CORPUSCULAR HEMOGLOBIN 32.5 pg (27-33); MEAN CORPUSCULAR HGB CONC 31.8 g/dl (32-36); MEAN PLATELET VOLUME 9.1 fl (7.4-10.4); MONO % 13.5 % (0-9); PLATELET COUNT 237 K/uL (130-400); RED BLOOD COUNT 3.63 M/uL (3.80-5.40); RED CELL DISTRIBUTION WIDTH 13.7 % (11.5-14.5); WHITE BLOOD COUNT W/O DIFF 6.1 K/uL (4.2-12.2)
[2017-12-22] MEDS ORDERED: ONDANSETRON HCL IV 4 MG/2 ML VIAL IVP PRN (11:18)
[2017-12-22] MEDS ORDERED: HYDROMORPHONE HCL 2 MG/ML VIAL IVP PRN (11:18)
[2017-12-22] MEDS ORDERED: IBUPROFEN 600 MG PO PRN (11:41)
[2017-12-22] MEDS ORDERED: HYDROCODONE/APAP 5/325MG TABLET PO PRN (11:44)
[2017-12-22] MEDS: PATIENT OWN MED: OMEPRAZOLE 20 MG PO SCH (12:01)
[2017-12-22] MEDS: PAROXETINE 10 MG PO SCH (12:01)
[2017-12-22] MEDS: CARBIDOPA PO SCH ×2 (12:02→16:11)
[2017-12-22] MEDS: LEVODOPA PO SCH ×2 (12:02→16:11)
[2017-12-22] MEDS: HYDROCODONE/APAP 5/325MG TABLET PO PRN ×2 (14:37→21:02)
[2017-12-22] MEDS: PATIENT OWN MED: OXYBUTYNIN 5 MG PO SCH (21:10)
[2017-12-22] MEDS ORDERED: PATIENT OWN MED: LEVOTHYROXINE 75 MCG PO SCH (22:00)
[2017-12-22] MEDS ORDERED: 0.9 % SODIUM CHLORIDE 10ML SYR IVP SCH (22:00)
[2017-12-22] MEDS ORDERED: PATIENT OWN MED: ATENOLOL 25 MG PO SCH (22:00)
[2017-12-22] MEDS ORDERED: PATIENT OWN MED: LOVASTATIN 40 MG PO SCH (22:00)
[2017-12-23] MEDS: PATIENT OWN MED: OMEPRAZOLE 20 MG PO SCH (06:33)
[2017-12-23] MEDS: CARBIDOPA PO SCH (06:34)
[2017-12-23] MEDS: LEVODOPA PO SCH (06:34)
[2017-12-23] MEDS: PATIENT OWN MED: OXYBUTYNIN 5 MG PO SCH (09:10)
[2017-12-23] MEDS: PAROXETINE 10 MG PO SCH (09:10)
[2017-12-23] MEDS ORDERED: PATIENT OWN MED: ASPIRIN 325 MG PO SCH (10:00)
[2017-12-23] MEDS ORDERED: PATIENT OWN MED: ENALAPRIL 20 MG PO SCH (10:00)
[2017-12-23] MEDS ORDERED: METFORMIN 750 MG PO SCH (10:00)
--- NOTE | 2017-12-23 12:20 | Operative Note ---
DATE OF SURGERY: 12/22/2017 Surgeon: Cesar Alejandro DO PREOPERATIVE DIAGNOSIS: Invasive breast cancer, right breast. POSTOPERATIVE DIAGNOSIS: Invasive breast cancer, right breast. OPERATION: Right mastectomy with sentinel node. Indication: The patient is an 87-year-old female who had the unfortunate recent diagnosis of invasive breast cancer. We did discuss lumpectomy versus mastectomy. She desired mastectomy. We also talked about sentinel node possibility of adjuvant tumor. Due to her age at 87 and underlying performance status, she really was not interested in any adjuvant treatment. She was also fairly insistent in having her operation down at [place] due to the location. Risks, benefits, and alternatives were discussed. Risks include bleeding, infection, neurovascular injury, postop seroma formation. She understood this fully. Thereafter, consent was signed and questions answered. PROCEDURE: The patient was taken to the operating room and placed in a supine position. General anesthesia was administered per the department of anesthesia. The patient's right breast and chest were prepped and draped in the usual fashion. I did injection the periareolar region with 5 mL of Lymphazurin blue. A 5-minute waiting period was then done. At this time, an elliptical Edmund incision was made around the right breast. Starting superiorly, this was carried to the costoclavicular ligament. Inferior down to the inframammary fold. The breast was taken off from medial to lateral perspective preserving the pectoralis fascia. We did observe the right axillary contents. These were fairly easily obtainable and for completeness sake, the right axillary contents were taken in at the level 1 nodes. The specimen was then passed off the field. The wound was then irrigated. A #10 flat Brant-Palomino drain was placed and brought through a separate stab incision. The skin was closed with 2-0, 3-0, and 4-0 Vicryl. Steri-Strips were applied. Local anesthetic was injected into the skin. She tolerated the procedure well. CC: DO VADIM Valentin
== END 2017-12-23 11:45 | disposition home or self-care (01) ==
LOC: SUR 07:39 → MEDSURG 11:15 → SUR 12-23 11:20
PROVIDERS: ATTEND Surgery
DX: C50.911 Malignant neoplasm of unspecified site of right female breast (principal); E11.9 Type 2 diabetes mellitus without complications; I10 Essential (primary) hypertension; E78.00 Pure hypercholesterolemia, unspecified; G20 Parkinson's disease
CPT/HCPCS: 19307; 38500; 38900; 00404; 85025; 80048; J2405; J3010; J0690